=== PATIENT | female | born 1965 | race Caucasian/White ===

== ENCOUNTER → 2016-11-09 | Outpatient (CLI) | payer OTHER ==
[~2016-11-09] MED LIST: BCPILLS PO; CETI10TA84 PO; CYAN10004 PO; POLY335040 PO; RANI150C4 PO; RANI300T PO; VNTHFA/IN INH; XNX25 PO
--- NOTE | 2016-11-09 11:19 | DIAGNOSTIC IMAGING REPORT ---
LUMBAR SPINE 5 VIEWS HISTORY: Pain M54.5 Low back [id number] COMPARISON: None. FINDINGS: There is no fracture. No subluxation. Disc spaces are preserved. IMPRESSION: No fracture or subluxation within the lumbar spine. Electronically signed by: Mayito Sheehan M.D. 11/09/2016 11:17 AM Dictated Date/Time: 11/09/2016 11:09 AM
== END | disposition home or self-care (01) ==
LOC: C.RAD1850 10:22
PROVIDERS: ATTEND Nurse Practitioner Adult Health
DX: M54.5 Low back pain (principal)

== ENCOUNTER → 2017-06-19 | Day surgery (SDC) | payer OTHER ==
[2017-06-13 08:03] VITALS: Ht 157.5 cm; Wt 85.0 kg
[~2017-06-19] VITALS: Ht 157.5 cm; Wt 85.0 kg
[~2017-06-19] MED LIST changes: -RANI300T PO; +SODIUM CHLORIDE 0.9% 500ML 500 ML IV ONE
[2017-06-19 10:36] VITALS: TEMP 36.4
--- NOTE | 2017-06-19 10:40 | Endo History and Physical ---
History & Physical Date of Service: Jun 19, 2017. Chief Complaint: Screening Referring Physician: Constantino Pérez History of Present Illness 51 yo CF who presents for screening colonoscopy. Past Surgical History Hx Cardiac Surgery: No Hx Internal Defibrillator: No Hx Pacemaker: No Hx Abdominal Surgery: No Hx of Implantable Prosthesis: No Hx Post-Op Nausea and Vomiting: No Hx Cancer Surgery: No Hx Thoracic Surgery: No Hx Orthopedic: No Hx Urinary Tract Surgery: No Family History None Social History Smoking Status: Never Smoker Hx Substance Use: No Hx Alcohol Use: Yes (OCCASIONAL) Allergies Coded Allergies: Sulfa Drugs (Verified Allergy, Unknown, HAPPENED A CHILD - UNSURE REACTION, 06/13/17) Current Medications Reported Home Medications Medications Dose Route/Sig Max Daily Dose Days Date Category Ventolin Hfa (Albuterol) 200 Puffs/17031 Mcg Aers 2-4 Puffs INH Q6H PRN 06/13/17 Reported Zyrtec (Cetirizine HCl) 10 Mg Tab 10 Mg PO QAM 06/13/17 Reported Vitamin B-12 1000 Mcg (Cyanocobalamin) 1,000 Mcg Tab 1,000 Mcg PO QAM 06/13/17 Reported Ranitidine Hcl 150 Mg Cap 1 Cap PO QAM 06/13/17 Reported Miralax Powder Packet (Polyethylene) 17 Gm Pack 17 Gm PO DAILY PRN 08/01/12 Reported Xanax * (Alprazolam) 0.25 Mg Tab 0.25 Mg PO BID PRN 10/25/09 Reported Control Pills (Miscellaneous) Tab 1 Tab PO QAM 10/25/09 Reported Vital Signs Weight (Kilograms): 85 Height (Feet): 5 Height (Inches): 2 Date Time Temp Pulse Resp B/P (MAP) Pulse Ox O2 Delivery O2 Flow Rate FiO2 06/19/17 10:36 36.4 79 16 171/83 (112) 100 Room Air Physical Exam General Appearance: WD/WN, no apparent distress Respiratory/Chest: Auscultation: breath sounds normal Cardiovascular: Heart Auscultation: RRR Abdomen: Bowel Sounds: normal Inspection & Palpation: soft, non-distended, no tenderness, guarding & rebound Assessment and Plan Assessment: 51 yo CF who presents for screening colonoscopy. Plan: Proceed with colonoscopy.
--- NOTE | 2017-06-19 11:20 | GI REPORT ---
Procedure Date: 06/19/2017 10:46 AM Procedure: Colonoscopy Indications: Screening for colorectal malignant neoplasm Medicines: Monitored Anesthesia Care Complications: No immediate complications. Estimated Blood Loss: Estimated blood loss: none. Procedure: Pre-Anesthesia Assessment: - Prior to the procedure, a History and Physical was performed, and patient medications and allergies were reviewed. The patient's tolerance of previous anesthesia was also reviewed. The risks and benefits of the procedure and the sedation options and risks were discussed with the patient. All questions were answered, and informed consent was obtained. Prior Anticoagulants: The patient has taken no previous anticoagulant or antiplatelet agents. ASA Grade Assessment: II - A patient with mild systemic disease. After reviewing the risks and benefits, the patient was deemed in satisfactory condition to undergo the procedure. After I obtained informed consent, the scope was passed under direct vision. Throughout the procedure, the patient's blood pressure, pulse, and oxygen saturations were monitored continuously. The scope was introduced through the anus and advanced to the terminal ileum. The colonoscopy was performed without difficulty. The patient tolerated the procedure well. The quality of the bowel preparation was good. The terminal ileum, ileocecal valve, appendiceal orifice, and rectum were photographed. Findings: Non-bleeding internal hemorrhoids were found during retroflexion. The hemorrhoids were small. Impression: - Non-bleeding internal hemorrhoids. - No specimens collected. Recommendation: - Resume previous diet. - Continue present medications. - Repeat colonoscopy in 10 years for surveillance. - Return to primary care physician as previously scheduled. Padilla Miguel DO 06/19/2017 11:19:38 AM This report has been signed electronically. Note Initiated On: 06/19/2017 10:46 AM I attest to the content of the Intraoperative Record and orders documented therein, exceptions below
--- NOTE | 2017-06-19 11:45 | Discharge Instructions ---
Endoscopy Patient Instructions Date / Procedure(s) Performed Jun 19, 2017. Colonoscopy Allergy Information Coded Allergies: Sulfa Drugs (Verified Allergy, Unknown, HAPPENED A CHILD - UNSURE REACTION, 06/13/17) Discharge Date / Findings Jun 19, 2017. Internal hemorrhoids Medication Instructions OK to resume all medications today as prescribed Reported Home Medications Medications Dose Route/Sig Max Daily Dose Days Date Category Ventolin Hfa (Albuterol) 200 Puffs/92877 Mcg Aers 2-4 Puffs INH Q6H PRN 06/13/17 Reported Zyrtec (Cetirizine HCl) 10 Mg Tab 10 Mg PO QAM 06/13/17 Reported Vitamin B-12 1000 Mcg (Cyanocobalamin) 1,000 Mcg Tab 1,000 Mcg PO QAM 06/13/17 Reported Ranitidine Hcl 150 Mg Cap 1 Cap PO QAM 06/13/17 Reported Miralax Powder Packet (Polyethylene) 17 Gm Pack 17 Gm PO DAILY PRN 08/01/12 Reported Xanax * (Alprazolam) 0.25 Mg Tab 0.25 Mg PO BID PRN 10/25/09 Reported Control Pills (Miscellaneous) Tab 1 Tab PO QAM 10/25/09 Reported Provider Instructions Activity Restrictions - No exercising or heavy lifting for 24 hours. - Do not drink alcohol the day of the procedure. - Do not drive a car or operate machinery until the day after the procedure. - Do not make any important decisions or sign important papers in 24 hours after the procedure. Following Day: - Return to full activity which may include returning to work/school. Diet Start your diet with liquids and light foods (jello, soup, juice, toast). Then eat your usual diet if not nauseated. Treatment For Common After Affects For mild abdominal pain, bloating, or excessive gas: - Rest - Eat lightly - Lie on right side Follow-Up Information Follow-up with Constantino Pérez as scheduled Anesthesia Information What You Should Know You have had a procedure that required some medicine to reduce anxiety and discomfort. This treatment is called moderate sedation. After receiving the treatment, you may be sleepy, but you will be able to breathe on your own. The effects of the treatment may last for several hours. Follow these instructions along with Activity/Diet recommendations noted above: * Do NOT do anything where dizziness or clumsiness would be dangerous. * Rest quietly at home today, then you can be up and about tomorrow. * Have a responsible person stay with you the rest of today. * You may have had an I.V. today. If so, you may take the dressing off later today. Recommendations Call your doctor if: * Trouble breathing * Continuous vomiting for more than 24 hours * Temperature above 101 degrees * Severe abdominal pain or bloating * Pain not relieved by pain medicine ordered * There is increased drainage or redness from any incision * A large amount of rectal bleeding greater than 2-3 tablespoons. (If you had a polyp/s removed or have hemorrhoids, a small amount of blood - from the rectum is to be expected.) * You have any unanswered questions or concerns. IN THE EVENT OF A SERIOUS EMERGENCY, GO TO THE NEAREST EMERGENCY ROOM Your discharge instructions were prepared by provider Padilla Miguel. Patient Instructions Signature Page David Bridges Patient (or Guardian) Signature/Date: I have read and understand the instructions given to me by my caregivers. Caregiver/RN/Doctor Signature/Date: The above-named patient and/or guardian has received patient instructions on this date. + Original Patient Signature Page (only) stays with chart. Please make copy for patient.
[2017-06-19 11:50] VITALS: BP 168/90; PULSE 75; O2SAT 100
--- NOTE | 2017-06-19 12:44 | Anesthesiology Progress Note ---
Anesthesia Post Op Note Date & Time Jun 19, 2017 at 12:44 Vital Signs Pain Intensity: 0 Vital Signs Past 12 Hours Date Time Temp Pulse Resp B/P (MAP) Pulse Ox O2 Delivery O2 Flow Rate FiO2 06/19/17 11:50 75 20 168/90 (116) 100 Room Air 06/19/17 11:36 72 18 160/83 (108) 100 Room Air 06/19/17 11:18 81 18 142/77 (98) 99 Room Air 06/19/17 10:36 36.4 79 16 171/83 (112) 100 Room Air Notes Mental Status: alert / awake / arousable, participated in evaluation Pt Amnestic to Procedure: Yes Nausea / Vomiting: adequately controlled Pain: adequately controlled Airway Patency, RR, SpO2: stable & adequate BP & HR: stable & adequate Hydration State: stable & adequate Anesthetic Complications: no major complications apparent
== END | disposition home or self-care (01) ==
LOC: C.GI 10:08
PROVIDERS: ATTEND Internal Medicine
DX: Z12.11 Encounter for screening for malignant neoplasm of colon (principal)

== ENCOUNTER → 2017-09-13 | Outpatient (CLI) | payer OTHER ==
[~2017-09-13] MED LIST changes: -SODIUM CHLORIDE 0.9% 500ML 500 ML IV ONE
--- NOTE | 2017-09-14 13:36 | MAMMOGRAPHY REPORT ---
BILATERAL DIGITAL SCREENING MAMMOGRAM TOMOSYNTHESIS WITH CAD: 09/13/2017 CLINICAL HISTORY: Routine screening. Patient has no complaints. TECHNIQUE: Breast tomosynthesis in addition to standard 2D mammography was performed. Current study was also evaluated with a Computer Aided Detection (CAD) system. COMPARISON: Comparison is made to exams dated: 06/28/2010 mammogram and 06/17/2010 mammogram - [facility]. BREAST COMPOSITION: There are scattered areas of fibroglandular density in both breasts. FINDINGS: There is a possible small cluster of calcifications within the right superior breast at kaela roximately 11:30 to 12:00, for which spot magnification views are recommended for further evaluation. The remainder of both breasts are stable compared to prior exams, without suspicious masses, calcific ations, or areas of architectural distortion noted. IMPRESSION: ACR BI-RADS CATEGORY 0: INCOMPLETE EVALUATION: NEED ADDITIONAL IMAGING EVALUATION Right breast calcifications, for which additional imaging evaluation is recommended. The patient chace l be called to schedule an appointment. Approximately 10% of breast cancers are not detected with mammography. A negative mammographic report should not delay biopsy if a clinically suggestive mass is present. Annemarie Boateng M.D. ah/:09/13/2017 14:58:10 Manager Database: Loretta FAROOQ(Kennedy)(Geovanni), [facility] letter sent: Addl Imaging 0 BI-RADS Code: ACR BI-RADS Category 0: Incomplete Evaluation: Need Additional Imaging Evaluation
== END | disposition home or self-care (01) ==
LOC: C.MAMM 14:05
PROVIDERS: ATTEND Internal Medicine
DX: Z12.31 Encounter for screening mammogram for malignant neoplasm of breast (principal); R92.1 Mammographic calcification found on diagnostic imaging of breast

== ENCOUNTER → 2017-10-16 | Outpatient (CLI) | payer OTHER ==
--- NOTE | 2017-10-16 14:28 | MAMMOGRAPHY REPORT ---
UNILATERAL RIGHT DIGITAL DIAGNOSTIC MAMMOGRAM: 10/16/2017 CLINICAL HISTORY: 52-year-old woman called back from screening mammography for a possible small clust er of calcifications in the right upper outer quadrant. TECHNIQUE: Spot magnification right CC and ML views were obtained. COMPARISON: Comparison is made to exams dated: 09/13/2017 mammogram, 06/28/2010 ultrasound, 06/28/2010 mammogram, 06/17/2010 mammogram - [facility], and 10/12/2006. BREAST COMPOSITION: There are scattered areas of fibroglandular density in the right breast. FINDINGS: There are approximately 3 loosely grouped monomorphic microcalcifications in the right uppe r outer middle one third of the breast. The spot magnification ML view demonstrates flattening or la yering of all 3 of the calcifications, confirming benign milk of calcium; they have a smudgy appearan ce on the spot magnification CC view. Given the benign features of the calcifications, no further wo rkup is needed at this time. Overall, no suspicious mass, suspicious grouping or cluster of calcific ations, asymmetry or area of distortion is seen in the right breast. Recommend return to annual scre ening mammography schedule. IMPRESSION: ACR BI-RADS CATEGORY 2: BENIGN 3 loosely grouped microcalcifications in the right upper outer quadrant demonstrate layering on the s pot magnification ML view confirming benign milk of calcium. There is no mammographic evidence of ma lignancy in the right breast. Recommend return to annual screening mammography schedule. These results and recommendations were discussed with the patient at the time of the exam. Approximately 10% of breast cancers are not detected with mammography. A negative mammographic report should not delay biopsy if a clinically suggestive mass is present. Maral Lutz M.D. ay/:10/16/2017 11:34:31 Veneer Supervisor: Amanda Carney, [facility] letter sent: Normal /2 BI-RADS Code: ACR BI-RADS Category 2: Benign
== END | disposition home or self-care (01) ==
LOC: C.MAMM 10:59
PROVIDERS: ATTEND Internal Medicine
DX: R92.0 Mammographic microcalcification found on diagnostic imaging of breast (principal)

== ENCOUNTER → 2018-02-07 | Outpatient (CLI) | payer OTHER | END | disposition home or self-care (01) | LOC: C.PAPS 15:49 | PROVIDERS: ATTEND Obstetrics & Gynecology | DX: Z01.419 Encounter for gynecological examination (general) (routine) without abnormal findings (principal) ==

== ENCOUNTER 2024-10-13 07:56 | Observation (INO) ==
--- NOTE | 2024-09-10 15:03 | PAT Medication Instructions ---
Medication Instructions Date of Service September 10, 2024 Home Medications Medication Instructions Recorded meloxicam 15 mg tablet 15 mg PO DAILY #30 tabs 06/24/24 buspirone 7.5 mg tablet 7.5 mg PO BID #60 tabs 08/11/24 meloxicam 15 mg tablet 15 mg PO DAILY buspirone 7.5 mg tablet 7.5 mg PO BID acetaminophen 500 mg tablet 500 mg PO Q6H PRN ibuprofen 200 mg tablet (Advil) 200 mg PO Q6H PRN magnesium glycinate 400 mg PO QPM olmesartan 20 mg tablet 20 mg PO QAM polyethylene glycol 3350 17 gram oral powder packet (Miralax) 17 g PO QAM PRN riboflavin (vitamin B2) 400 mg tablet 400 mg PO QAM sumatriptan succinate 50 mg tablet 50 mg PO UD PRN ASK your surgeon for instructions meloxicam 15 mg tablet 15 mg PO DAILY ibuprofen 200 mg tablet (Advil) 200 mg PO Q6H PRN DO NOT take the morning of surgery olmesartan 20 mg tablet 20 mg PO QAM polyethylene glycol 3350 17 gram oral powder packet (Miralax) 17 g PO QAM PRN riboflavin (vitamin B2) 400 mg tablet 400 mg PO QAM Take morning of surgery With a small sip of water, OTHERWISE NOTHING TO EAT OR DRINK AFTER MIDNIGHT: buspirone 7.5 mg tablet 7.5 mg PO BID acetaminophen 500 mg tablet 500 mg PO Q6H PRN (if needed) sumatriptan succinate 50 mg tablet 50 mg PO UD PRN (if needed) Take evening before surgery buspirone 7.5 mg tablet 7.5 mg PO BID acetaminophen 500 mg tablet 500 mg PO Q6H PRN (if needed) magnesium glycinate 400 mg PO QPM sumatriptan succinate 50 mg tablet 50 mg PO UD PRN (if needed) Other Notes If you have any questions please call us at [phone] or [phone] or [phone] or [phone]
--- NOTE | 2024-09-16 10:19 | Anesthesiology Consultation ---
Date of Service September 16, 2024 Assessment & Plan (1) Encounter for pre-operative examination: - Infectious disease screening: Per assessment on 09/16/24- No known recent infectious disease contacts or current infectious disease symptoms. - Outpatient joint assessment: Pt currently scheduled for inpatient pathway. If surgeon requests review for outpatient joint pathway, patient is an acceptable candidate for outpatient joint program from anesthesia standpoint pending surgeon's office assessment that patient is motivated, has good support and completes [facility] Joint Program preop requirements. - Patient has upcoming routine visit with PCP- Awaiting office visit note ([facility], appt 09/26). Patient otherwise acceptable risk for surgery. Chart Review Chart Review: Patient seen in Pre Admission Testing History Surgery Operation Date: 10/13/24 09:00 Proposed Procedures p Left Total Knee Arthroplasty - Nicolás Barrera DO Height/Weight Height: 5 ft 2 in Weight: 96.5 kg Allergies Allergy/AdvReac Type Severity Reaction Status Date / Time Sulfa (Sulfonamide Allergy Unknown Unknown Verified 09/11/24 12:30 Antibiotics) reaction (as child) Medications Home Medications Medication Instructions Recorded Confirmed Last Taken meloxicam 15 mg tablet 15 mg PO DAILY #30 tabs 06/24/24 09/10/24 Unknown buspirone 7.5 mg tablet 7.5 mg PO BID #60 tabs 08/11/24 09/10/24 Unknown acetaminophen 500 mg tablet 500 mg PO Q6H PRN prn 09/10/24 09/10/24 Unknown ibuprofen 200 mg tablet (Advil) 200 mg PO Q6H PRN prn 09/10/24 09/10/24 Unknown magnesium glycinate 400 mg PO QPM 09/10/24 09/10/24 Unknown olmesartan 20 mg tablet 20 mg PO QAM 09/10/24 09/10/24 Unknown polyethylene glycol 3350 17 gram 17 g PO QAM PRN prn 09/10/24 09/10/24 Unknown oral powder packet (Miralax) riboflavin (vitamin B2) 400 mg 400 mg PO QAM 09/10/24 09/10/24 Unknown tablet sumatriptan succinate 50 mg tablet 50 mg PO UD PRN prn 09/10/24 09/10/24 Unknown Past Medical History Medical History (Updated 09/16/24 @ 14:08 by Yancy Mcguire) Anxiety Asthma Chronic constipation Eustachian tube dysfunction GERD (gastroesophageal reflux disease) Hearing loss hearing aids Hyperlipemia Hypertension Migraines Obesity Osteoarthritis Exercise / Class Metabolic Activity II 4-5 Yardwork/Stairs/Walk up hill (one FS: No CP, no SOB) Past Family History Family History Grandmother (Maternal) Myocardial infarction Heart disease Mother Hypertension Denies family history of Ovarian cancer Prostate cancer Diabetes Breast cancer Lung cancer Colorectal cancer Past Surgical History Surgical History History of colonoscopy S/P tonsillectomy and adenoidectomy Past Anesthesia History No Hx of Anesthesia Complications and No Family Hx of Anesthesia Complications History of PONV No Hx of PONV and Hx of Motion Sickness Social History Smoking Status: Never smoker Do You Dip or Chew Tobacco: No Hx Alcohol Use: Yes Alcohol type: beer, wine and hard liquor alcohol intake frequency: a few times a week Hx Substance Use: No substance use type: does not use Review of Systems Rare atypical chest pain episodes- s/p unremarkable stress test done 07/2024. Symptoms felt f/t anxiety/panic attacks. No current/recent chest pain complaints. Episodes at baseline x past several years per patient. Occasional palpitations. Patient denies chest pain, shortness of breath, dyspnea on exertion, fever, chills, cough, wheezing. Physical Exam Vital Signs BP 121/78 P 76 TEMP 97.5 SP02 99%RA RESP 16 Physical Full cervical extension range of motion. Full TMJ range of motion. TMD 3 finger breaths Mallampati Score II Dentition: intact, + crowns Lungs: clear throughout to auscultation Cardiac: regular rate and rhythm, no murmurs noted Spine: normal Carotid arteries: negative bruit Extremities: no LE edema Lab Results Anesthesia Preop Results Results Anesthesia Widget: WBC 7.11 K/ul (4.8-10.8) 09/16/24 Hgb 13.5 g/dl (12.0-16.0) 09/16/24 Hct 41.7 % (37.0-47.0) 09/16/24 Plt 279 K/uL (130-400) 09/16/24 Na 140 mmol/L (136-145) 09/16/24 K 4.5 mmol/L (3.5-5.1) 09/16/24 Cl 107 mmol/L (98-107) 09/16/24 CO2 27 mmol/L (21-32) 09/16/24 BUN 18 mg/dl (6-23) 09/16/24 Creat 0.85 mg/dl (0.6-1.2) 09/16/24 Glucose Level 92 mg/dl (70-99(Fasting)) 09/16/24 PT 10.5 Seconds (9.0-12.0) 09/16/24 PTT 24 Seconds (21-31) 09/16/24 INR 1.0 (0.9-1.1) 09/16/24 Blood Type A Positive 09/16/24 Antibody Screen NEGATIVE 09/16/24 Testing Electrocardiogram Date: 09/16/24 NSR at 74bpm. Rightward axis. PRWP, consider anterior [place] vs lead placement vs LVH. No significant change compared to 08/01/2012 per residential recycle driver comparison. Chest X-Ray Date: 09/16/24 FINDINGS: No lines and tubes are seen. The cardiomediastinal silhouette is normal. The lungs are clear. No evidence of pleural effusion or pneumothorax. IMPRESSION: No acute chest disease. Stress Test Date: 07/11/24 Nondiagnostic exercise echocardiogram due to inability to achieve target heart rate. 98% MPHR. No evidence of inducible ischemia at workload achieved. 6 METS. EF 60-65%. LV systolic function is normal. Grade 1 diastolic dysfunction. RVSP is elevated at 30-40 mmHg. No significant valvular heart disease.
[~2024-10-13 07:56] MED LIST changes: -BCPILLS PO; +BUPIVACAINE 0.5 % 5 MG/1 ML PF 10ML VIAL ONE; -CETI10TA84 PO; -CYAN10004 PO; -POLY335040 PO; -RANI150C4 PO; +ROPIVACAINE 0.5% 5 MG/ML 30 ML VIAL ONE; -VNTHFA/IN INH; -XNX25 PO
[2024-10-13] MEDS ORDERED: ONDANSETRON INJ 2 MG/ML 2 ML VIAL ONE (08:09)
[2024-10-13] MEDS ORDERED: MIDAZOLAM HCL 1 MG/ML 2ML VIAL ONE (08:09)
[2024-10-13] MEDS ORDERED: LIDOCAINE 2% 2 ML VIAL/AMP(20MG/ML) INFIL ONE (08:09)
[2024-10-13] MEDS ORDERED: PROPOFOL IV EMULSION 10 MG/ML 20 ML VIAL IV ONE (08:09)
[2024-10-13] MEDS ORDERED: GLYCOPYRROLATE 0.2 MG/ML VIAL ONE (08:09)
[2024-10-13] MEDS ORDERED: KETAMINE HCL 10MG/ML SYR ONE (08:09)
[2024-10-13] MEDS: LR 500ML BOLUS, THEN 15ML/HR IV SCH (08:33)
[2024-10-13] MEDS: LR 60ML/HR IV SCH (08:33)
[2024-10-13] MEDS: ACETAMINOPHEN 500 MG TAB PO SCH ×2 (08:34→14:52)
[2024-10-13] MEDS: dexAMETHasone**PF** 10 MG/ML VIAL IV SCH (08:34)
[2024-10-13] MEDS: FAMOTIDINE 20 MG TAB PO SCH (08:34)
[2024-10-13] MEDS: GABAPENTIN 600 MG DOSE PO SCH (08:34)
--- NOTE | 2024-10-13 09:05 | History & Physical Bridge Note ---
Date of Service October 13, 2024 History & Physical Bridge Note I have examined the patient, reviewed the History & Physical and in the interval since the performance of the History & Physical I have noted the following changes of clinical significance: no changes noted
[2024-10-13] MEDS ORDERED: fentaNYL citrate PF 100 MCG/2 ML VIAL IV PRN (09:33)
[2024-10-13] MEDS ORDERED: ATROPINE SULFATE 0.1 MG/ML 10ML SYR IV PRN (09:33)
[2024-10-13] MEDS ORDERED: ONDANSETRON INJ 2 MG/ML 2 ML VIAL IV PRN ×2 (09:33→13:09)
[2024-10-13] MEDS ORDERED: ePHEDrine sulfate 50 MG/ML AMP IV PRN (09:33)
[2024-10-13] MEDS: TRANEXAMIC ACID 1,000 MG **IV Pre-op IV SCH (09:52)
[2024-10-13] MEDS: ceFAZolin 2000MG 2,000 MG/15 ML SYR IV SCH ×2 (10:05→17:57)
[2024-10-13] MEDS: ORTHO JOINT ANESTHETIC ONE (10:34)
[2024-10-13] MEDS: ROPIV 0.5% 246mg, Ketorolac 30mg, EPINEPHrine 0.5mg in NSS INFIL SCH (10:34)
[2024-10-13] MEDS: TRANEXAMIC ACID 1,000 MG **IV Intra-op IV SCH (11:00)
--- NOTE | 2024-10-13 11:18 | Operative Report ---
[facility] Post Operative Report Pre & Post Diagnosis Operation Date: 10/13/24 10:00 Pre-Op Diagnosis: Left Knee Osteoarthritis Post-Op Diagnosis: Left Knee Osteoarthritis I identified the patient and participated in the time-out.: Yes Procedure Operation Date: 10/13/24 10:00 Actual Procedures p Left Total Knee Arthroplasty(Left) - Nicolás Barrera DO Surgeon Nicolás Barrera DO Radiator Tester Sina Orosco PA-C Estimated Blood Loss 30 Findings Consistent with Post-Op Diagnosis Specimens Left femoral and tibial bone Description of Procedure Implants used: I used a Maureen Persona total knee arthroplasty system with a size 6 PS femur, C tibia, 31 oval patella, and a size 10 CPS polyethylene bearing. All components were cemented in place with Biomet cement. David arrived [facility] for the above procedure. She was seen in the preoperative holding area and the operative extremity was identified and signed. She was given a preoperative antibiotic, TXA, a spinal anesthetic and an adductor nerve block. She was taken back to the operating room and laid on the table in supine position. She was given basic sedation. The operative knee was then prepped and draped in sterile fashion. A timeout was done, and the patient and the operative extremity was properly identified. A midline incision was made directly over the patella. Dissection was taken down to the extensor mechanism. A subvastus arthrotomy was used. The medial retinaculum was released and the fat pad was mostly excised. The knee was flexed and the ACL, PCL, and meniscus were removed. A drill was sent down the center of the femoral canal followed by an intramedullary leeann. Off that leeann a distal femoral cutting block was placed. 9 mm was resected off the distal femur at 5 of valgus. A posterior referencing AP sizing guide was then placed on the distal femur. The femur measured to be a size 6. 2 drill holes were placed in 3 of external rotation. A 4-in-1 cutting block was then impacted into place. Anterior, posterior, and chamfer cuts were then made. The proximal tibia was then exposed. An external tibial alignment guide was placed. A tibial cut guide was then anchored in place and the proximal tibia was then resected. The posterior aspect of the knee was then opened up and any additional meniscus fragments and osteophytes were removed. The tibia measured to be a size C. The tibial plate was then placed in the appropriate rotation and the tibia was drilled and punched. Trial components were then placed. I used a size 10 CPS polyethylene insert. The knee was brought through a full range of motion and felt to be stable. The peg holes for the femoral component were then drilled. The patella was then everted and 9 mm was resected off the posterior aspect of the patella. The patella measured to be a size 31 oval. 3 peg holes were then drilled. A trial patella was placed. The knee was once again brought through a full range of motion and felt to be stable. Trial components were then removed. The surrounding soft tissues were injected with 100 cc of an orthopedic pain control cocktail. All components were then cemented into place with Biomet cement. The final polyethylene insert was then snapped into place. Once cement was dry the tourniquet was deflated. Hemostasis was obtained. A dilute betadyne lavage was then done for 3 minutes. The joint was then irrigated with normal saline solution. The subvastus arthrotomy was then closed with #1 Vicryl suture. The skin was closed with 2-0 Vicryl, 3-0V lock suture, and eric. A soft compressive dressing was placed. She was then transferred to a hospital bed and taken to the postanesthesia care unit in stable condition. She tolerated the procedure well. Sina Orosco PA-C, was present for the entire procedure. He was critical for patient positioning, prepping, draping, retraction exposure, wound closure and application of sterile dressing. I attest to the content of the Intraoperative Record and any orders documented therein. Any exceptions are noted below.
--- NOTE | 2024-10-13 12:03 | XRay Report ---
XR knee LT 1 or 2V routine CLINICAL HISTORY: Surgical Post Op TECHNIQUE: 2 views of the left knee were obtained. Comparison: Comparison is made to knee radiographs 06/24/2024 FINDINGS: Patient is status post total knee arthroplasty with expected postsurgical changes including soft tiss ue swelling and subcutaneous emphysema. No periarticular lucency or hardware fracture is seen. IMPRESSION: Expected postoperative appearance status post placement of total knee arthroplasty. ACT 112: Negative or not required by law. Electronically signed by: Adams Moreau M.D. 10/13/2024 12:02 PM
[2024-10-13] MEDS ORDERED: HYDROmorphone INJ 0.5 MG/0.5 ML SYR IV PRN (13:09)
[2024-10-13] MEDS ORDERED: SUMAtriptan succinate 50 MG TAB PO PRN (13:09)
[2024-10-13] MEDS ORDERED: traMADol HCL 50 MG TABLET PO PRN (13:09)
[2024-10-13] MEDS ORDERED: MAGNESIUM HYDROXIDE SUSP 30 ML UDC PO PRN (13:09)
[2024-10-13] MEDS ORDERED: bisacodyL 10 MG SUPP PR PRN (13:09)
[2024-10-13] MEDS ORDERED: METOCLOPRAMIDE HCL INJ 5 MG/ML 2 ML VIAL IV PRN (13:09)
[2024-10-13] MEDS ORDERED: NALOXONE HCL 0.4 MG/1 ML VIAL/CARP IV PRN (13:09)
--- NOTE | 2024-10-13 14:00 | Anesthesiology Progress Note ---
Date of Service October 13, 2024 Anesthesia Post Procedure Vital Signs Vital Signs: Temp Pulse Pulse Resp BP BP Pulse Ox 10/13/24 13:43 97.3 F L 71 16 109/72 97 10/13/24 13:09 97.9 F 67 16 113/76 98 10/13/24 12:20 97.5 F L 65 15 116/66 95 10/13/24 12:10 71 15 119/69 97 10/13/24 12:00 86 15 113/83 97 10/13/24 11:50 75 15 115/62 97 10/13/24 11:40 76 15 110/60 99 10/13/24 11:33 97.0 F L 86 17 110/58 L 100 10/13/24 08:28 99.7 F H 83 20 155/78 H 99 O2 Del Method O2 Flow Rate 10/13/24 13:43 Room Air 10/13/24 13:09 Room Air 10/13/24 12:20 Room Air 10/13/24 12:10 Room Air 10/13/24 12:00 Room Air 10/13/24 11:50 Oxymask 5 10/13/24 11:40 Oxymask 5 10/13/24 11:33 Oxymask 5 10/13/24 08:28 Room Air Transfer of Care Handoff Completed per policy Notes Mental Status: alert / awake / arousable and participated in evaluation Patient Amnestic to Procedure: Yes Nausea / Vomiting: adequately controlled Pain: adequately controlled Airway Patency, RR, SpO2: stable & adequate BP & HR: stable & adequate Hydration State: stable & adequate Anesthetic Complications: no major complications apparent and Pt Satisfied with anesthetic care
[2024-10-13] MEDS: KETOROLAC TROMETHAMINE 15 MG/ML VIAL IV SCH (14:52)
[2024-10-13] MEDS: oxyCODONE HCL IR 5 MG TAB (IMMEDIATE RELEASE) PO PRN (17:56)
[2024-10-13] MEDS: DOCUSATE SODIUM 100 MG CAP PO SCH (20:40)
[2024-10-13] MEDS: SENNA 8.6 MG TAB PO SCH (20:40)
[2024-10-13] MEDS: ASPIRIN 81 MG ECTAB PO SCH (20:40)
[2024-10-13] MEDS: busPIRone 7.5 MG TAB PO SCH (20:42)
[2024-10-14 03:03] VITALS: TEMP 97.7
[2024-10-14 07:41] VITALS: BP 138/82; PULSE 69; RESP 16; O2SAT 96
[2024-10-14] MEDS: dexAMETHasone 4 MG TAB PO SCH (08:07)
[2024-10-14] MEDS: MULTIVITAMIN TAB PO SCH (08:07)
[2024-10-14] MEDS: LOSARTAN POTASSIUM 50 MG TAB PO SCH (08:07)
[2024-10-14] MEDS ORDERED: NON-FORMULARY MEDICATION (Riboflavin (Vitamin B2) 400 mg tablet) PO SCH (09:00)
--- NOTE | 2024-10-14 10:19 | Orthopedic Progress Note ---
Date of Service October 14, 2024 Assessment & Plan (1) Status post left knee replacement: Assessment: Status post left total knee arthroplasty Plan: Overall, she is doing quite well today with good pain control left knee. She will work with physical therapy and Occupational Therapy later this morning to work on ambulation and range of motion exercises. She is on aspirin for DVT prophylaxis. Dressings can be changed today prior to discharge once completed with physical therapy. She can be discharged home later this morning pending formal physical therapy evaluation and recommendations. She will follow-up in 2 weeks with orthopedics for continued postoperative management or sooner if needed. She verbalized understanding agrees with this plan. Subjective . David was seen and evaluated at bedside this morning resting comfortably in no apparent distress. She has been up and out of bed with no significant issues. She is yet to work with physical therapy this morning. She denies any concerns to her surgical incision site to the left knee. She denies any active bleeding, discharge, or signs of infection. She denies any low back pain, proximal/distal extremity pain, numbness/ting, or paresthesias. She denies any other concerns today. Review of Systems All systems reviewed & are unremarkable except as noted in HPI & below. Physical Exam . Focused exam of the left knee shows intact dressings with no signs of active bleeding, discharge, or signs of infection. Limited range of motion and strength due to subjective discomfort. Calf soft nontender to palpation. Negative Homans' sign. Intact plantarflexion dorsiflexion of left ankle. +2 DP and PT pulse. Less than 2-second capillary refill. Normal sensation. Neurovascular intact. Results & Data Results & Data Laboratory Results . Diagnostic Findings . PG Care Time/CCT Total # of Minutes Spent Total Time Spent with Patient: Total time spent is greater than 50% in coordination of care (as documented) at patient's floor/unit and/or counseling patient: Coding Level of Care Code 30074 Post Operative Follow-Up Diagnoses Status post left knee replacement Z96.652
--- NOTE | 2024-10-14 10:21 | Discharge Summary ---
Date of Service October 14, 2024 Principal Diagnosis Same as "Discharge Diagnosis" noted below under Discharge Instructions. Discharge Exam . Focused exam of the left knee shows intact dressings with no signs of active bleeding, discharge, or signs of infection. Limited range of motion and strength due to subjective discomfort. Calf soft nontender to palpation. Negative Homans' sign. Intact plantarflexion dorsiflexion of left ankle. +2 DP and PT pulse. Less than 2-second capillary refill. Normal sensation. Neurovascular intact. Discharge Data Procedures Performed Operation Date: 10/13/24 10:00 Actual Procedures p Left Total Knee Arthroplasty(Left) - Nicolás Barrera DO Ordered Studies 10/13/24 05:00 US - OR guided needle placemen Routine Hospital Course (1) Status post left knee replacement: On 10/13/2024, David arrived at [facility] underwent a left total knee arthroplasty performed by Dr. Barrera with no complications. She had a spinal anesthetic. Postoperatively, she was started on aspirin for DVT prophylaxis and transferred to the general orthopedic floor in stable condition. Her hospital course was uneventful. On postoperative day #1, her vital signs are stable and her pain is well-controlled. She participated well physical therapy working on ambulation and range of motion exercises. She was then discharged home in stable condition. She will follow-up with orthopedics in 2 weeks for continued postoperative management or sooner if needed. PG Care Time/CCT Total # of Minutes Spent Total Time Spent with Patient: Total time spent is greater than 50% in coordination of care (as documented) at patient's floor/unit and/or counseling patient: Discharge Plan Discharge Items Patient Disposition: Home - Home Health Services Reason For Visit: Left Knee Arthritis Discharge Diagnosis: Status Post Ledt TKA Activity: Per Instructions section Non-emergency contact: Surgeon Call non-emergency contact if: your temperature is above 101.5, your wound has increased redness, your wound has increased drainage and your wound pain has increased Follow-up/Referrals: Pro,Constantino Posey MD [Primary Care Provider] - Diet: Regular Addtl Attending Provider Instructions: Activity and Therapy Recommendations: * If you are using [facility] then therapy will be provided at your home until they feel you have accomplished all of your goals. * If you are using [facility] then Physical Therapy will be provided until they feel you are ready to start Outpatient Physical Therapy. * If you are not using home therapy then Outpatient Physical Therapy should start about 3-5 days from your day of surgery. Therapy will last about 6-10 weeks * It is important not to put a pillow under your knee when you are relaxing or sleeping. It is just as important to make sure you are getting your knee perfectly straight as it is to regain your knee bend. * You were shown a series of exercises in the hospital. Do these exercises three times each day including the exercises you were shown in physical therapy. * Get up and walk several times each day. For the first four weeks, try not to stand or walk for more than one hour at a time. If you do stand or walk for more than one hour, you will not hurt anything, but your leg will likely swell. * As you feel comfortable, you may change from the walker or crutches to a cane and then to independent walking. Medications: * Narcotic You will likely be sent home from the hospital with a prescription for the narcotic pain medication that worked best throughout your stay. * Cefadroxil -take the antibiotic twice a day for 10 days to help prevent infection. * Aspirin Most patients will be required to take Aspirin 81mg twice a day for 6 weeks after surgery. This is obtained [id number] and a prescription is not necessary. * Other medications may be prescribed for specific circumstances. If you have any questions, please call the office at . * Resume previous home medications unless otherwise instructed TEDs/Elastic Stockings: The white elastic stockings help limit swelling and prevent blood clots from forming in your legs.~ The more you wear them, the more they work. Wear them for six weeks. Dressing Care: The dressing can be changed after physical therapy on postop day #1. Daily dry dressing changes for a few days, especially if the incision is still draining some. If the incision is not draining then you may leave the eric open to air. If there is a little bit of drainage or if the eric are getting stuck on your clothing then cover the incision with a dry dressing. The eric will be removed at your 2 week follow-up appointment. Showering: You may shower 5 days from the day of surgery as long as the incision is no longer draining. You may shower with the eric exposed. Let soapy water run over the eric and pat them dry. Do not scrub or soak the incision. Diet: You may resume your previous diet. Things To Watch For: * Drainage from the incision site that occurs more than one week after your surgery. * Increased redness at the incision site. * Fever above 102 degrees Fahrenheit. * Unusual chest pain or shortness of breath. * Call [facility] at with any of the above problems Follow-Up Visit: Follow-up with Dr. Barrera's office 2-3 weeks after your day of surgery. We will remove your eric and answer any questions. If you have any additional questions or concerns, Dr Barrera is usually in the office at the same time and will be available An appointment was probably scheduled when you signed-up for surgery in the office. If you have any questions call Office Instructions: More detailed instructions as well as Frequently Asked Questions were provided in a folder by our office when you signed-up for surgery. Please review these instructions when you get home. If you have any further questions or concerns, please feel free to call the office at [phone] Pending Studies at Discharge: No Stand-Alone Forms: My [facility], Smoking Cessation Medications and DC Order Prescriptions: New cefadroxil 500 mg capsule 500 mg PO BID 10 Days Qty: 20 0RF oxycodone 5 mg tablet 5 mg PO Q6H PRN (Reason: pain) Qty: 30 0RF aspirin 81 mg Tablet,Delayed Release (Dr/Ec) 81 mg PO BID 42 Days Qty: 0 0RF Continued buspirone 7.5 mg tablet 7.5 mg PO BID Qty: 60 2RF meloxicam 15 mg tablet 15 mg PO DAILY Qty: 30 3RF polyethylene glycol 3350 [Miralax] 17 gram Powder In Packet 17 g PO QAM PRN (Reason: prn) acetaminophen 500 mg Tablet 500 mg PO Q6H PRN (Reason: prn) ibuprofen [Advil] 200 mg Tablet 200 mg PO Q6H PRN (Reason: prn) sumatriptan succinate [Imitrex] 50 mg tablet 50 mg PO UD PRN (Reason: prn) Rx Instructions: take 1 tab at onset of headache; if no relief may repeat 1 tab after at least 2 hrs; max = 4 tabs/24 hr PO olmesartan 20 mg tablet 20 mg PO QAM riboflavin (vitamin B2) 400 mg tablet 400 mg PO QAM magnesium glycinate 100 mg magnesium capsule 400 mg PO QPM Admission Data Admit Date/Time: 10/13/24 11:36 Attending Provider: Nicolás Barrera Admit Provider: Nicolás Barrera Primary Care Provider: Constantino Pérez
== END 2024-10-14 12:31 | disposition home health service (06) ==
LOC: 3E 07:56 → ASU 07:56
DX: M17.12 Unilateral primary osteoarthritis, left knee; Z88.2 Allergy status to sulfonamides; J45.909 Unspecified asthma, uncomplicated; Z79.899 Other long term (current) drug therapy; K21.9 Gastro-esophageal reflux disease without esophagitis; E78.5 Hyperlipidemia, unspecified; I10 Essential (primary) hypertension

== ENCOUNTER 2025-08-17 06:28 | Observation (INO) ==
--- NOTE | 2025-07-17 11:08 | PAT Medication Instructions ---
Medication Instructions Date of Service July 17, 2025 Home Medications Medication Instructions Recorded amoxicillin 500 mg tablet 2,000 mg (4 x 500 mg) PO ONCE #4 03/25/25 tabs olmesartan 20 mg tablet 20 mg PO QAM #90 tabs 06/02/25 acetaminophen 500 mg tablet 500 mg PO Q6H PRN prn ibuprofen 200 mg tablet (Advil) 200 mg PO Q6H PRN Pain magnesium glycinate 400 mg PO QPM polyethylene glycol 3350 17 gram oral powder packet (Miralax) 17 g PO QAM PRN Constipation riboflavin (vitamin B2) 400 mg tablet 400 mg PO QAM sumatriptan succinate 50 mg tablet (Imitrex) 50 mg PO UD PRN prn amoxicillin 500 mg tablet 2,000 mg (4 x 500 mg) PO ONCE olmesartan 20 mg tablet 20 mg PO QAM cholecalciferol (vitamin D3) 50 mcg (2,000 unit) tablet (Vitamin D3) 50 mcg PO QAM meloxicam 15 mg tablet 15 mg PO QAM Continue as directed amoxicillin 500 mg tablet 2,000 mg (4 x 500 mg) PO ONCE ASK your surgeon for instructions ibuprofen 200 mg tablet (Advil) 200 mg PO Q6H PRN Pain meloxicam 15 mg tablet 15 mg PO QAM DO NOT take the morning of surgery polyethylene glycol 3350 17 gram oral powder packet (Miralax) 17 g PO QAM PRN Constipation riboflavin (vitamin B2) 400 mg tablet 400 mg PO QAM olmesartan 20 mg tablet 20 mg PO QAM cholecalciferol (vitamin D3) 50 mcg (2,000 unit) tablet (Vitamin D3) 50 mcg PO QAM Take morning of surgery With a small sip of water, OTHERWISE NOTHING TO EAT OR DRINK AFTER MIDNIGHT: acetaminophen 500 mg tablet 500 mg PO Q6H PRN prn (if needed) sumatriptan succinate 50 mg tablet (Imitrex) 50 mg PO UD PRN prn (if needed) Take evening before surgery acetaminophen 500 mg tablet 500 mg PO Q6H PRN prn (if needed) magnesium glycinate 400 mg PO QPM sumatriptan succinate 50 mg tablet (Imitrex) 50 mg PO UD PRN prn (if needed) Other Notes If you have any questions please call us at [phone] or [phone] or [phone] or [phone]
--- NOTE | 2025-07-22 11:09 | Anesthesiology Consultation ---
Date of Service July 22, 2025 Assessment & Plan (1) Encounter for pre-operative examination: - s/p left TKA 10/13/24 SAB L3-L4 1 attempt. - Outpatient joint assessment: Patient is currently scheduled for inpatient pathway. If re-evaluated and patient/surgeon requests outpatient pathway, patient is acceptable candidate for outpatient joint program from anesthesia standpoint pending surgeon's office assessment of pt motivation/support/completion of same day joint program preop requirements. Chart Review Chart Review: Acceptable Risk for Surgery and Patient seen in Pre Admission Testing Teaching & Discussion Pre-Anesthesia Teaching/Discussion Notes: Instructed NPO after midnight before surgery, except medications with 15 cc of water. Medication instructions provided according to the PAT guidelines. History Surgery Operation Date: 08/17/25 08:00 Proposed Procedures p Robotic Assisted Right Total Knee Arthroplasty - Nicolás Barrera, Height/Weight Height: 5 ft 2 in Weight: 99.3 kg Allergies Allergy/AdvReac Type Severity Reaction Status Date / Time Sulfa (Sulfonamide Allergy Unknown Unknown Verified 07/17/25 09:13 Antibiotics) reaction (as child) Medications Home Medications Medication Instructions Recorded Confirmed Last Taken acetaminophen 500 mg tablet 500 mg PO Q6H PRN prn 09/10/24 07/17/25 10/12/24 20:00 ibuprofen 200 mg tablet (Advil) 200 mg PO Q6H PRN Pain 09/10/24 07/17/25 Unknown magnesium glycinate 400 mg PO QPM 09/10/24 07/17/25 10/11/24 polyethylene glycol 3350 17 gram 17 g PO QAM PRN Constipation 09/10/24 07/17/25 10/12/24 07:00 oral powder packet (Miralax) riboflavin (vitamin B2) 400 mg 400 mg PO QAM 09/10/24 07/17/25 10/11/24 tablet sumatriptan succinate 50 mg tablet 50 mg PO UD PRN prn 09/10/24 07/17/25 10/06/24 (Imitrex) amoxicillin 500 mg tablet 2,000 mg (4 x 500 mg) PO ONCE #4 03/25/25 07/17/25 Unknown tabs olmesartan 20 mg tablet 20 mg PO QAM #90 tabs 06/02/25 07/17/25 Unknown cholecalciferol (vitamin D3) 50 50 mcg PO QAM 07/17/25 07/17/25 Unknown mcg (2,000 unit) tablet (Vitamin D3) meloxicam 15 mg tablet 15 mg PO QAM 07/17/25 07/17/25 Unknown Past Medical History Medical History (Updated 07/23/25 @ 08:48 by Adrianna Lara PA-C) Anxiety per medical record - no medications currently. stable per patient. Asthma no current issues - no inhaler needed Chronic constipation GERD (gastroesophageal reflux disease) controlled, stable per pt Hearing loss hearing aids Hx of migraines Hyperlipidemia hx Hypertension controlled, stable per pt Obesity Osteoarthritis Patient denies h/o stroke, seizures, heart attack, heart failure, DM, blood clots/DVTs or blood transfusions. Exercise / Class Metabolic Activity II 4-5 Yardwork/Stairs/Walk up hill (denies chest discomfort or shortness of breath with one flight of stairs) Past Family History Family History Grandmother (Maternal) Heart disease Myocardial infarction Mother Hypertension Other No family history of adverse response to anesthesia Denies family history of Ovarian cancer Prostate cancer Diabetes Breast cancer Lung cancer Colorectal cancer Past Surgical History Surgical History (Updated 07/23/25 @ 08:48 by Adrianna Lara PA-C) History of colonoscopy Hx of total knee arthroplasty (10/2024) Left TKA S/P tonsillectomy and adenoidectomy Past Anesthesia History No Hx of Anesthesia Complications and No Family Hx of Anesthesia Complications History of PONV No Hx of PONV and Hx of Motion Sickness Social History Smoking Status: Never smoker Do You Dip or Chew Tobacco: No Hx Alcohol Use: Yes Alcohol type: beer, wine and hard liquor alcohol intake frequency: a few times a week Hx Substance Use: No substance use type: does not use Review of Systems Snoring, denies witnessed apneas. Patient denies chest pain, shortness of breath, dyspnea on exertion, fever, chills, cough, wheezing, or palpitations. Physical Exam Vital Signs Vitals BP 128/74 P 68 TEMP 97.9 SP02 98% on RA RESP 18 Physical Patient resting comfortably in chair in no acute distress, alert and oriented, responding appropriately throughout visit Full cervical extension range of motion without pain TMD 3.5 finger breadths Mallampati Score 2 Dentition: several caps, denies chipped or loose teeth, implants or bridges Lungs: normal respiratory effort. Good air movement, clear throughout to auscultation, no adventitious breath sounds Cardiac: regular rate and rhythm, no murmurs noted Carotid arteries: negative bruit bilat Lab Results Anesthesia Preop Results Results Anesthesia Widget: WBC 8.88 K/ul (4.8-10.8) 07/22/25 Hgb 13.2 g/dl (12.0-16.0) 07/22/25 Hct 39.9 % (37.0-47.0) 07/22/25 Plt 268 K/uL (130-400) 07/22/25 Na 140 mmol/L (136-145) 07/22/25 K 4.3 mmol/L (3.5-5.1) 07/22/25 Cl 107 mmol/L (98-107) 07/22/25 CO2 27 mmol/L (21-32) 07/22/25 BUN 21 mg/dl (6-23) 07/22/25 Creat 0.76 mg/dl (0.6-1.2) 07/22/25 Glucose Level 92 mg/dl (70-99(Fasting)) 07/22/25 PT 10.3 Seconds (9.0-12.0) 07/22/25 PTT 25 Seconds (21-31) 07/22/25 INR 1.0 (0.9-1.1) 07/22/25 TSH 0.985 uIu/ml (0.300-4.500) 07/22/25 Blood Type A Positive 07/22/25 Antibody Screen NEGATIVE 07/22/25 Testing Electrocardiogram Date: 07/22/25 NSR, rate 68 bpm Chest X-Ray Date: 09/16/24 No lines and tubes are seen. The cardiomediastinal silhouette is normal. The lungs are clear. No evidence of pleural effusion or pneumothorax. IMPRESSION: No acute chest disease. Stress Test Date: 07/11/24 MPHR 98% METS 6 Nondiagnostic exercise echo due to inability to achieve target heart rate No evidence of inducible ischemia at the workload achieved EF 60-65% Normal LV wall motion Grade I diastolic dysfunction RVSP elevated at 30-40 mmHg No significant valvular heart disease
--- NOTE | 2025-08-17 06:30 | History & Physical Bridge Note ---
Date of Service August 17, 2025 History & Physical Bridge Note I have examined the patient, reviewed the History & Physical and in the interval since the performance of the History & Physical I have noted the following changes of clinical significance: no changes noted
[2025-08-17] MEDS ORDERED: ROPIVACAINE 0.5% 5 MG/ML 30 ML VIAL ONE (06:35)
[2025-08-17] MEDS ORDERED: BUPIVACAINE 0.5 % 5 MG/1 ML PF 10ML VIAL ONE (06:35)
[2025-08-17] MEDS ORDERED: GLYCOPYRROLATE 0.2 MG/ML VIAL ONE (06:55)
[2025-08-17] MEDS ORDERED: MIDAZOLAM HCL 1 MG/ML 2ML VIAL ONE (06:55)
[2025-08-17] MEDS ORDERED: KETAMINE HCL 10MG/ML SYR ONE (06:55)
[2025-08-17] MEDS ORDERED: PROPOFOL IV EMULSION 10 MG/ML 20 ML VIAL IV ONE (06:55)
[2025-08-17] MEDS ORDERED: LIDOCAINE 2% 2 ML VIAL/AMP(20MG/ML) INFIL ONE (06:55)
[2025-08-17] MEDS ORDERED: ONDANSETRON INJ 2 MG/ML 2 ML VIAL ONE (06:55)
[2025-08-17] MEDS ORDERED: PHENYLEPHRINE 100MCG/ML 5ML SYR ONE (06:56)
[2025-08-17] MEDS ORDERED: ePHEDrine sulfate 50 MG/5 ML SYR ONE (06:56)
[2025-08-17] MEDS ORDERED: ATROPINE SULFATE 0.1 MG/ML 10ML SYR IV PRN (07:22)
[2025-08-17] MEDS ORDERED: ONDANSETRON INJ 2 MG/ML 2 ML VIAL IV PRN ×2 (07:22→10:51)
[2025-08-17] MEDS: GABAPENTIN 600 MG DOSE PO SCH (07:29)
[2025-08-17] MEDS: FAMOTIDINE 20 MG TAB PO SCH (07:30)
[2025-08-17] MEDS: LR 60ML/HR IV SCH (07:30)
[2025-08-17] MEDS: dexAMETHasone**PF** 10 MG/ML VIAL IV SCH (07:30)
[2025-08-17] MEDS: ACETAMINOPHEN 500 MG TAB PO SCH ×2 (07:30→17:27)
[2025-08-17] MEDS: LR 500ML BOLUS, THEN 15ML/HR IV SCH (07:30)
[2025-08-17] MEDS: TRANEXAMIC ACID 1,000 MG **IV Pre-op IV SCH (07:36)
[2025-08-17] MEDS: ORTHO JOINT ANESTHETIC ONE (08:36)
[2025-08-17] MEDS: ROPIV 0.5% 246mg, Ketorolac 30mg, EPINEPHrine 0.5mg in NSS INFIL SCH (08:36)
--- NOTE | 2025-08-17 08:58 | Operative Report ---
PG Post Operative Report Pre & Post Diagnosis Operation Date: 08/17/25 08:00 Pre-Op Diagnosis: Right Knee Arthritis Post-Op Diagnosis: Right Knee Arthritis I identified the patient and participated in the time-out.: Yes Procedure Operation Date: 08/17/25 08:00 Actual Procedures p Robotic Assisted Right Total Knee Arthroplasty, Uncemented(Right) - Nicolás Barrera DO Surgeon Nicolás Barrera DO Call Center Dispatcher Charito Castillo PA-C Estimated Blood Loss 30 Findings Consistent with Post-Op Diagnosis Specimens Right femoral and tibial bone Description of Procedure Implants used: I used a Maureen Persona total knee arthroplasty system with a size 6 standard PS femur, C tibia, 32 patella, and a size 14 CPS polyethylene bearing. All components were press-fit in place. David arrived [facility] for the above procedure. She was seen in the preoperative holding area and the operative extremity was identified and signed. She was given a preoperative antibiotic, TXA, a spinal anesthetic and an adductor nerve block. She was taken back to the operating room and laid on the table in supine position. She was given basic sedation. The operative knee was then prepped and draped in sterile fashion. A timeout was done, and the patient and the operative extremity was properly identified. A midline incision was made directly over the patella. Dissection was taken down to the extensor mechanism. A medial parapatellar arthrotomy was used. The medial retinaculum was released and the fat pad was mostly excised. The knee was flexed and the ACL, PCL, and meniscus were removed. The alignment of the knee replacement was assisted with a [employer] robotic knee. The femoral array was pinned in the distal femur and the tibial array was pinned using a percutaneous technique in the upper shaft of the tibia. The robot was appropriately calibrated and the structure of the knee was mapped out. The components were then manipulated on the screen to account for any malalignment and to assist in gap balancing. Once I was happy with the placement of the components on the screen, a distal femoral cutting guide was brought in place. The distal femur was then resected. The femur measured to be a size 6. A 4-in-1 cutting block was then put into place by the robot and 2 peg holes were drilled. The 4-in-1 cutting block was then impacted into place and anterior, posterior, and chamfer cuts were made. The cutting block was then brought down to the tibia and pinned into place. The proximal tibia was then resected. The posterior aspect of the knee was then opened up and any additional meniscus fragments and osteophytes were removed. The tibia measured to be a size C. The tibial plate was then placed in the appropriate rotation and the tibia was drilled and punched. Trial components were then placed. The patella was then everted and 9 mm was resected off the posterior aspect of the patella. The patella measured to be a size 32. 3 peg holes were then drilled. A trial patella was placed. A size 14 CPS polyethylene insert was then trialed. The knee was brought through a full range of motion and felt to be stable. Trial components were then removed. The surrounding soft tissues were injected with 100 cc of an orthopedic pain control cocktail. All components were then press-fit into place. The final polyethylene insert was then snapped into place. The tourniquet was deflated. Hemostasis was obtained. A dilute betadyne lavage was then done for 3 minutes. The joint was then irrigated with normal saline solution. The medial parapatellar arthrotomy was then closed with #1 Vicryl suture. The skin was closed with 2-0 Vicryl, 3-0V lock suture, and Anne Zipline. A soft compressive dressing was placed. She was then transferred to a hospital bed and taken to the postanesthesia care unit in stable condition. She tolerated the procedure well. Charito Castillo PA-C, was present for the entire procedure. He was critical for patient positioning, prepping, draping, retraction exposure, wound closure and application of sterile dressing. I attest to the content of the Intraoperative Record and any orders documented therein. Any exceptions are noted below.
--- NOTE | 2025-08-17 09:55 | XRay Report ---
XR knee RT 1 or 2V routine CLINICAL HISTORY: Surgical Post Op COMPARISON: None FINDINGS: Right knee prosthesis shows no hardware complication. There is expected soft tissue gas. IMPRESSION: Unremarkable postoperative exam. ACT 112: Negative or not required by law. Electronically signed by: Donald Zimmerman M.D. 08/17/2025 9:54 AM
[2025-08-17 10:20] VITALS: RESP 16
[2025-08-17] MEDS ORDERED: diphenhydrAMINE Capsule 25 MG CAP PO PRN (10:51)
[2025-08-17] MEDS ORDERED: ALUMINUM/MAGNESIUM SUSP 30 ML UDC PO PRN (10:51)
[2025-08-17] MEDS ORDERED: MAGNESIUM HYDROXIDE SUSP 30 ML UDC PO PRN (10:51)
[2025-08-17] MEDS ORDERED: NALOXONE HCL 0.4 MG/1 ML VIAL/CARP IV PRN (10:51)
[2025-08-17] MEDS ORDERED: METOCLOPRAMIDE HCL INJ 5 MG/ML 2 ML VIAL IV PRN (10:51)
[2025-08-17] MEDS ORDERED: POLYETHYLENE (MIRALAX) 17 GM PACK PO PRN (10:51)
--- NOTE | 2025-08-17 10:52 | Anesthesiology Progress Note ---
Date of Service August 17, 2025 Anesthesia Post Procedure Vital Signs Vital Signs: Temp Pulse Resp BP Pulse Ox O2 Del Method O2 Flow Rate 08/17/25 10:15 97.5 F L 75 16 116/63 99 Room Air 08/17/25 10:05 60 12 121/61 100 Room Air 08/17/25 09:55 60 16 117/59 L 100 Room Air 08/17/25 09:45 67 18 115/65 100 Room Air 08/17/25 09:35 72 20 113/54 L 100 Oxymask 3 08/17/25 09:25 97.3 F L 72 16 115/64 100 Oxymask 6 08/17/25 06:54 98.2 F 86 18 170/85 H 99 Room Air Transfer of Care Handoff Completed per policy Notes Mental Status: alert / awake / arousable and participated in evaluation Patient Amnestic to Procedure: Yes Nausea / Vomiting: adequately controlled Pain: adequately controlled Airway Patency, RR, SpO2: stable & adequate BP & HR: stable & adequate Hydration State: stable & adequate Neuraxial Anesthesia: was administered and sensory block is resolving Anesthetic Complications: no major complications apparent and Pt Satisfied with anesthetic care
[2025-08-17] MEDS: SODIUM CHLORIDE 0.9% 1,000 ML IV SCH (11:00)
[2025-08-17] MEDS: KETOROLAC TROMETHAMINE 15 MG/ML VIAL IV SCH (13:03)
[2025-08-17] MEDS: DOCUSATE SODIUM 100 MG CAP PO SCH (20:17)
[2025-08-17] MEDS: SENNA 8.6 MG TAB PO SCH (20:17)
[2025-08-18 07:27] VITALS: BP 146/84; PULSE 71; TEMP 97.7; O2SAT 99
[2025-08-18] MEDS: LOSARTAN POTASSIUM 50 MG TAB PO SCH (08:09)
[2025-08-18] MEDS: MULTIVITAMIN TAB PO SCH (08:09)
--- NOTE | 2025-08-18 09:49 | Orthopedic Progress Note ---
Date of Service August 18, 2025 Assessment & Plan (1) Status post total right knee replacement: * Continue Current Treatment * Disposition: Home * Daily treatment: Physical Therapy/ Occupational Therapy per protocol * Weight bearing status: as tolerated * Continue to monitor for ABLA * Pain control * DVT prophylaxis, ASA * Office/hospital f/u 2 weeks for progress check and staple/suture removal * Plan for discharge today pending PT/OT clearance Subjective Active Problems: S/p right total knee arthroplasty POD 1 59 y/o female s/p right total knee arthroplasty with Dr. Barrera 08/17/25. Doing well overall, pain managed and improved function. Denies fever/chills, chest pain/SOB, nausea/vomiting. Otherwise no complaints. . Review of Systems All systems reviewed & are unremarkable except as noted in HPI & below. Physical Exam . * General: Alert and oriented, no acute distress * Constitutional: well-developed, well-nourished. * Respiratory: Normal respiratory effort, no distress * Gastrointestinal: No tenderness to palpation, no rigidity or guarding. * Skin: No rash or lesion. * Neurologic: Grossly normal * Musculoskeletal: Right knee surgical dressing clean, dry and in place, not removed for exam. Otherwise no obvious deformity or overlying skin changes RLE. Diffuse TTP distal thigh and knee region. Otherwise no specific te nderness of proximal thigh, lower leg, foot/ankle. AROM knee flexion 110 degrees. AROM foot/ankle intact. Sensation intact plantar/dorsal foot. Brisk capillary refill. Results & Data Results & Data Laboratory Results . Diagnostic Findings Knee X-Ray 08/17/25 09:29 XR knee RT 1 or 2V routine CLINICAL HISTORY: Surgical Post Op COMPARISON: None FINDINGS: Right knee prosthesis shows no hardware complication. There is expected soft tissue gas. IMPRESSION: Unremarkable postoperative exam. ACT 112: Negative or not required by law. Electronically signed by: Donald Zimmerman M.D. 08/17/2025 9:54 AM . PG Care Time/CCT Total # of Minutes Spent Total Time Spent with Patient: Total time spent is greater than 50% in coordination of care (as documented) at patient's floor/unit and/or counseling patient: Coding Level of Care Code 20964 Post Operative Follow-Up Diagnoses Status post total right knee replacement Z96.651
== END 2025-08-18 12:58 | disposition home or self-care (01) ==
LOC: 3N 06:28 → ASU 06:28